=== PATIENT | male | born 2000 | race Caucasian/White ===

== ENCOUNTER 2022-09-08 15:41 | Emergency (ER) | payer SELFPAY ==
--- NOTE | ~2022-09-08 | US_ITS ---
EXAMINATION: US SCROTUM CLINICAL INFORMATION: Testicular/scrotal pain. Age 22. COMPARISON: None available. TECHNIQUE: A sonogram of the scrotum was performed assessing prieto-scale appearance and color Doppler flow. Spectral Doppler analysis of the arterial and venous flow were performed in the testes bilaterally. FINDINGS: RIGHT: Right testicle measures 4.8 x 2.2 x 2.9 cm, volume 15.7 mL. No focal testicular parenchymal lesions are visualized. There is normal bilateral intratesticular color flow and low resistance spectral Doppler waveforms. No torsion. Right epididymal head is normal in size. No right hydrocele or varicocele is seen. Right epididymal Doppler flow is normal. There is an incidental epididymal head cyst measuring 0.6 x 0.5 cm. LEFT: Left testicle measures 4.0 x 2.2 x 2.8 cm, volume 13.1 mL. No focal testicular parenchymal lesions are visualized. There is normal bilateral intratesticular color flow and low resistance spectral Doppler waveforms. No torsion. Left epididymal head is normal in size. No left hydrocele or varicocele is seen. Left epididymal Doppler flow is normal. There is an incidental left epididymal head cyst measuring 0.4 x 0.2 cm. US/US scrotum IMPRESSION: - No intratesticular mass or torsion. No hydrocele. - Small bilateral epididymal head cysts; right 6 mm, left 4 mm.
--- NOTE | ~2022-09-08 | US_ITS ---
EXAMINATION: US SCROTUM CLINICAL INFORMATION: Testicular/scrotal pain. Age 22. COMPARISON: None available. TECHNIQUE: A sonogram of the scrotum was performed assessing prieto-scale appearance and color Doppler flow. Spectral Doppler analysis of the arterial and venous flow were performed in the testes bilaterally. FINDINGS: RIGHT: Right testicle measures 4.8 x 2.2 x 2.9 cm, volume 15.7 mL. No focal testicular parenchymal lesions are visualized. There is normal bilateral intratesticular color flow and low resistance spectral Doppler waveforms. No torsion. Right epididymal head is normal in size. No right hydrocele or varicocele is seen. Right epididymal Doppler flow is normal. There is an incidental epididymal head cyst measuring 0.6 x 0.5 cm. LEFT: Left testicle measures 4.0 x 2.2 x 2.8 cm, volume 13.1 mL. No focal testicular parenchymal lesions are visualized. There is normal bilateral intratesticular color flow and low resistance spectral Doppler waveforms. No torsion. Left epididymal head is normal in size. No left hydrocele or varicocele is seen. Left epididymal Doppler flow is normal. There is an incidental left epididymal head cyst measuring 0.4 x 0.2 cm. US/US scrotum doppler IMPRESSION: - No intratesticular mass or torsion. No hydrocele. - Small bilateral epididymal head cysts; right 6 mm, left 4 mm.
--- NOTE | 2022-09-08 17:26 | ED.MALEGU ---
HPI - Male Genitourinary General Chief complaint: Urogenital-Male <MARIELLE Johnson - Last Filed: 09/08/22 17:28> Stated complaint: pain in testicle <MARIELLE Johnson - Last Filed: 09/08/22 17:28> Time Seen by Provider: 09/08/22 19:15 <MARIELLE Johnson - Last Filed: 09/08/22 17:28> Source: patient, RN notes reviewed and old records reviewed <Allan Ayala - Last Filed: 09/08/22 19:30> Mode of arrival: ambulatory <Allan Ayala - Last Filed: 09/08/22 19:30> Limitations: no limitations <Allan Ayala - Last Filed: 09/08/22 19:30> History of Present Illness HPI Narrative: This is a 22-year-old male with no significant past medical history presents for evaluation of intermittent right testicular pain. Patient reports that he 1st noticed the pain about 1 month ago. He has notice that his pain seems to be related to increased exertion. His pain seems to be worse after working out in gym He denies any scrotal swelling or rashes He denies any difficulty urinating. Denies any blood in the urine Denies any urethral discharge or new sexual partners No other complaints or concerns at this time <Allan Ayala - Last Filed: 09/08/22 19:30> Related Data Allergies/Adverse reactions: Allergies Allergy/AdvReac Type Severity Reaction Status Date / Time No Known Allergies Allergy Verified 09/08/22 17:26 [No Known Allergies*] <MARIELLE Johnson - Last Filed: 09/08/22 17:28> Review of Systems Constitutional: Constitutional: Reports as per HPI, Denies chills and Denies fever(s) <Allan Ayala - Last Filed: 09/08/22 19:30> Gastrointestinal: Gastrointestinal: Denies abdominal pain, Denies constipation and Denies vomiting <Allan Ayala - Last Filed: 09/08/22 19:30> Genitourinary: Genitourinary: Denies difficulty urinating, Denies dysuria, Denies scrotal swelling, Denies testicular mass and Reports testicular pain (right side) <Allan Ayala - Last Filed: 09/08/22 19:30> Neurologic: Denies focal weakness <Allan Ayala - Last Filed: 09/08/22 19:30> PMFSH Social History Social History: Social History Advance Directives: No Advance Directives Information Provided: Yes <MARIELLE Johnson - Last Filed: 09/08/22 17:28> Physical Exam Vital Signs: Vital Signs: Last Vital Signs Temp 98.5 F 09/08/22 17:27 Pulse 70 09/08/22 17:27 Resp 18 09/08/22 17:27 BP 136/75 09/08/22 17:27 Pulse Ox 99 09/08/22 17:27 O2 Del Method Room Air 09/08/22 17:27 BMI result Body Mass Index 23.5 <MARIELLE Johnson - Last Filed: 09/08/22 17:28> Vital Signs: Last Vital Signs Temp 98.5 F 09/08/22 17:27 Pulse 70 09/08/22 17:27 Resp 18 09/08/22 17:27 BP 136/75 09/08/22 17:27 Pulse Ox 99 09/08/22 17:27 O2 Del Method Room Air 09/08/22 17:27 BMI result Body Mass Index 23.5 <Allan Ayala - Last Filed: 09/08/22 19:30> Const: General: healthy appearing, comfortable, no acute distress, alert and awake <Allan Ayala - Last Filed: 09/08/22 19:30> Nutritional Appearance: well nourished <Allan Ayala - Last Filed: 09/08/22 19:30> Orientation/consciousness: patient oriented x3 <Allan Ayala - Last Filed: 09/08/22 19:30> HEENT: Head: Yes normocephalic and Yes atraumatic <Allan Ayala - Last Filed: 09/08/22 19:30> Eyes: Eyelids: Yes eyelids normal <Allan Ayala - Last Filed: 09/08/22 19:30> Conjunctivae: conjunctivae normal <Allan Ayala - Last Filed: 09/08/22 19:30> Sclerae: sclerae normal <Allan Ayala - Last Filed: 09/08/22 19:30> Corneas: corneas normal <Allan OSouth Boardman - Last Filed: 09/08/22 19:30> Pupils: Equal, round and reactive pupils present <Allan Soly - Last Filed: 09/08/22 19:30> EOM: EOMs intact bilaterally <Allan OPatrick - Last Filed: 09/08/22 19:30> GI: Inspection: No distended <Allan OSouth Boardman - Last Filed: 09/08/22 19:30> Palpation (GI): Soft to palpation, not firm, nontender, no guarding and not rigid <Allan OSouth Boardman - Last Filed: 09/08/22 19:30> Auscultation: normoactive bowel sounds <Allan OPatrick - Last Filed: 09/08/22 19:30> Skin: General skin exam: no rashes or lesions noted and elasticity normal <Allan OSouth Boardman - Last Filed: 09/08/22 19:30> Neuro: General: patient oriented x3 <Allan OPatrick - Last Filed: 09/08/22 19:30> Cranial nerves: Yes Equal, round and reactive pupils present and Yes Bilaterally intact EOM present <Allan OSouth Boardman - Last Filed: 09/08/22 19:30> Cognition (Neuro): normal cognition <Allan OSouth Boardman - Last Filed: 09/08/22 19:30> Course Course Course Narrative: RME - 22 yo male presents to the ER for evaluation of intermittent right testicular discomfort for the last 1 month. No concern for STI. No urethral drainage. No testicular swelling. Plan: testicular U/S, UA, CT/NG <MARIELLE Johnson - Last Filed: 09/08/22 17:28> Medical Decision Making Medical Decision Making MDM Narrative: 22-year-old male with no significant past medical history presents for evaluation of testicular pain. His pain has been intermittent for 1 month. Less likely be torsion. He also has no urethral discharge or new sexual partners. Less likely to be ST are related. Patient's ultrasound shows no significant mass or torsion. No hydrocele. No evidence of epididymitis. I offer the patient STI testing regardless the patient declines. Will discharge patient to follow-up with his PCP. He will be given neurology follow-up given he has had testicular pain x1 month. <Allan Ayala - Last Filed: 09/08/22 19:30> Differential Diagnosis Testicular pain Inguinal hernia Hydrocele Epididymitis Testicular torsion <Allan Ayala - Last Filed: 09/08/22 19:30> Discharge Plan Discharge Clinical Impression: Pain in right testicle <MARIELLE Johnson - Last Filed: 09/08/22 17:28> Patient Disposition: Home, Self-Care <MARIELLE Johnson - Last Filed: 09/08/22 17:28> Instructions: Testicle Pain (ED) <MARIELLE Johnson - Last Filed: 09/08/22 17:28> Additional Instructions: Your ultrasound did not show any evidence of testicular torsion or epididymitis. There were no concerning lesions or masses seen either. Try to abstain from going to the gym for at least 1 week to see if this improved your pain You may follow-up with Dr. Ohara, urology if your symptoms persist <MARIELLE Johnson - Last Filed: 09/08/22 17:28> Referrals: Taz Ohara MD [Physician] - (testicular pain) <MARIELLE Johnson - Last Filed: 09/08/22 17:28>
[2022-09-08 17:27] VITALS: BP 136/75; PULSE 70; RESP 18; TEMP 36.9; O2SAT 99; BMI 23.5
--- OUTSIDE RECORDS SUMMARY | 2022-09-08 18:35 | XMS_ITS | Continuity of Care Document ---
Author Name Unknown Organization [facility] Address [address] [place] [id number]- Care Team Providers Care Instructor Hairspring Name Role Phone Oswaldo LIN (MB ChB FAAP), Reanna Dias Primary Care Phys ician Encounter [facility] [place] Date(s): 08/24/21 - 08/24/[address] [address]- Discharge Disposition: A-D/C Home Attending Physician: Vladimir Cross MD Admitting Physician: Vladimir Cross MD Referring Physician: Not on Staff, Referring MD Allergies, Adverse Reactions, Alerts Substance Reaction Severity Status PROzac suicidal ideation Active Immunizations Given and Recorded Vaccine Date Status Refusal Reason tetanus/diphtheria/pertussis, acel(Tdap) 08/24/21 Given Medications Abilify 2 mg oral tablet 2 mg, 1, tablet, By Mouth, Daily in AM, # 30 tablet, Refills 0, Tot. Refills 0, Maintenance, 08/14/15 14:48:51, Route to Pharmacy Electronically, [id number], [facility] Start Date: 08/14/15 Status: Ordered Adderall 10 mg oral tablet 1 tablet = 10 mg, By Mouth, Daily, at 2pm, # 30 tablet, 0 Refills, Maintenance, 08/14/15 14:34:16 Start Date: 08/14/15 Status: Ordered Augmentin 875 mg-125 mg oral tablet 1 tablet, By Mouth, Every 12 hours, for 10 days, # 20 tablet, 0 Refills, Acute 09/03/21 17:20:00 EDT, 08/24/21 17:20:00 EDT, Tablet, [id number], Partial fill upon patient request if the prescription is for a schedule II opioid drug.,... Start Date: 08/24/21 Stop Date: 09/03/21 Status: Ordered citalopram 20 mg oral tablet 30 mg, 1.5, tablet, By Mouth, Daily, # 45 tablet, Refills 0, Tot. Refills 0, Maintenance, 09/03/15 15:01:06, Route to Pharmacy Electronically, [id number], [facility] Start Date: 09/03/15 Status: Ordered cloNIDine 0.1 mg oral tablet 0.1 mg, 1, tablet, By Mouth, Daily at bedtime, # 30 tablet, Refills 0, Tot. Refills 0, Maintenance,08/14/15 14:44:58, Route to Pharmacy Electronically, [id number], [facility] Start Date: 08/14/15 Status: Ordered Problem List Condition Effective Dates Status Health Status Inform ant ADHD(Confirmed) Active Major Depressive Disorder, S buddy Episode(Confirmed) Active Vital Signs Most recent to oldest [Reference Range]: 1 2 3 Height 185 cm (08/24/21 7:00 PM) 185 cm (08/24/21 4:43 PM) 185 cm (08/24/21 4:14 PM) Weight 66 kg (08/24/21 7:00 PM) 66 kg (08/24/21 4:43 PM) 66 kg (08/24/21 4:14 PM) Oxygen Saturation [94-100 %] 100 % (08/24/21 7:00 PM) 100 % (08/24/21 4:43 PM) 100 % (08/24/21 4:14 PM) Pulse Rate [55-90 bpm] 71 bpm (08/24/21 7:00 PM) 83 bpm (08/24/21 4:43 PM) 95 bpm *H* (08/24/21 4:14 PM) Body Mass Index [18.5-24.99] 19.28 (08/24/21 7:00 PM) 19.28 (08/24/21 4:43 PM) 19.28 (08/24/21 4:14 PM) Blood Pressure [90-138/55-84 mm Hg] 138/102mm Hg (08/24/21 7:00 PM) 146/99mm Hg *H* (08/24/21 4:43 PM) 147/91mm Hg *H* (08/24/21 4:14 PM) Respiratory Rate [16-30 br/min] 16 br/min (08/24/21 7:00 PM) 18 br/min (08/24/21 4:43 PM) 16 br/min (08/24/21 4:14 PM) Temperature [96.8-100.4 DegF] 98.4 DegF (08/24/21 7:00 PM) 98.3 DegF (08/24/21 4:14 PM) Mode of Delivery (Oxygen) Room air (08/24/21 7:00 PM) Room air (08/24/21 4:14 PM) Blood pressure sites Arm, left (08/24/21 7:00 PM) Arm, right (08/24/21 4:14 PM) Temperature Route Oral (08/24/21 7:00 PM) Oral (08/24/21 4:14 PM) Weight Obtained Via Patient/family state d (08/24/21 4:14 PM)
== END 2022-09-08 19:51 | disposition home or self-care (01) ==
PROVIDERS: Emergency Provider Emergency Medicine
DX: N50.811 Right testicular pain (principal); R10.2 Pelvic and perineal pain
CPT/HCPCS: 76870; 93975; 99282; 99284